=== PATIENT | female | born 1995 | race African-American/Black ===

== ENCOUNTER 2020-07-23 17:02 | Emergency (ER) | payer OTHER ==
[2020-07-23 17:14] VITALS: BMI 41.1
[2020-07-23] MEDS ORDERED: KETOROLAC TROMETHAMINE 30 MG/1 ML VIAL IVPUSH ONE (18:07)
[2020-07-23] MEDS ORDERED: SODIUM CHLORIDE 0.9% 500 ML INFUS.BAG IV ONE (18:07)
[2020-07-23] MEDS ORDERED: KETOROLAC TROMETHAMINE 30 MG/1 ML VIAL ONE (18:13)
[2020-07-23 18:53] LABS: BASO % 0.8 % (0-2.0); EOS % 1.4 % (0-4.5); HEMATOCRIT 38.6 % (32.4-45.2); HEMOGLOBIN 12.8 GM/dL (10.7-15.3); LYMPH % 31.2 % (8-40); MCH 29.2 pg (25.7-33.7); MCHC 33.1 g/dl (32.0-36.0); MEAN PLT VOLUME 9.9 fl (7.5-11.1); MONO % 5.2 % (3.8-10.2); NEUT % 61.4 % (42.8-82.8); PLATELET COUNT 295 K/MM3 (134-434); RBC 4.39 M/mm3 (3.60-5.2); RDW 14.3 % (11.6-15.6); WHITE BLOOD COUNT 6.9 K/mm3 (4.0-10.0)
[2020-07-23 19:25] LABS: POTASSIUM 5.4 mmol/L (3.5-5.1)
[2020-07-23 19:27] LABS: ALBUMIN 3.7 g/dl (3.4-5.0); BLOOD UREA NITROGEN 13.5 mg/dL (7-18); CALCIUM 8.5 mg/dL (8.5-10.1)
[2020-07-23 19:30] LABS: CREATININE 1.2 mg/dL (0.55-1.3)
[2020-07-23 19:32] LABS: BILIRUBIN,TOTAL 0.2 mg/dL (0.2-1); TOT PROT 8.3 g/dl (6.4-8.2)
[2020-07-23 20:20] LABS: EPI CELLS >36 /uL (0-25.1); HYALINE CASTS 5 /uL (0-3.1); URINE APPEARANCE TURBID; URINE BACTERIA 48 /uL (0-1359); URINE BILIRUBIN NEGATIVE (NEGATIVE); URINE COLOR YELLOW; URINE GLUCOSE (UA) NEGATIVE (NEGATIVE); URINE KETONE 1+ (NEGATIVE); URINE LEUK ESTERASE NEGATIVE (NEGATIVE); URINE NITRITE NEGATIVE (NEGATIVE); URINE PROTEIN 1+ (NEGATIVE); URINE WBC 17 /uL (0-25.8)
[2020-07-23 20:21] LABS: HCG,QUALITATIVE URINE Negative
[2020-07-23 21:35] VITALS: BP 116/80; PULSE 73; TEMP 97.8
[2020-07-23 22:31] LABS: URINE RBC 292.9 /uL (0-23.9)
== END 2020-07-23 21:59 | disposition home or self-care (01) ==
LOC: JER 17:02
PROC: 3E0333Z Introduction of Anti-inflammatory into Peripheral Vein, Percutaneous Approach (ICD-10-PCS; principal; 2020-07-23)
DX: R10.9 Unspecified abdominal pain (principal)
CPT/HCPCS: 36415; 74176-TC; 80053; 81003; 84703; 85025; 87086; 99284-25; C9803; U0003

== ENCOUNTER 2020-08-25 05:26 | Day surgery (SDC) | payer OTHER ==
[2020-08-21 18:38] VITALS: BMI 40.4
[2020-08-25] MEDS ORDERED: MIDAZOLAM HCL 2 MG/2 ML SINGLE DOSE VIAL ONE ×4 (07:41→08:05)
[2020-08-25] MEDS ORDERED: ceFAZolin SODIUM 1 GM VIAL IVPB ONE (07:46)
[2020-08-25] MEDS ORDERED: oxyCODONE HCL 5 MG TABLET PO PRN (08:00)
[2020-08-25] MEDS ORDERED: DEXTROSE 5%-0.45% SALINE 1,000 ML IV SCH (08:00)
[2020-08-25 10:14] VITALS: TEMP 97.7
[2020-08-25 12:11] VITALS: BP 123/74; PULSE 93
== END 2020-08-25 11:50 | disposition home or self-care (01) ==
LOC: JASU-SURG 05:26
PROVIDERS: ATTEND Urology
PROC: 0TF4XZZ Fragmentation in Left Kidney Pelvis, External Approach (ICD-10-PCS; principal; 2020-08-25 07:30)
DX: N20.0 Calculus of kidney (principal)
CPT/HCPCS: 81025

== ENCOUNTER 2020-08-27 12:38 | Emergency (ER) | payer OTHER ==
[2020-08-27 12:48] VITALS: BMI 40.4
[2020-08-27] MEDS ORDERED: SODIUM CHLORIDE 1,000 ML IV STA (13:16)
[2020-08-27] MEDS ORDERED: ACETAMINOPHEN 1000 MG/100 ML VIAL (NON FORMULARY) IVPB ONE (13:16)
[2020-08-27] MEDS ORDERED: ONDANSETRON 4 MG/2 ML VIAL IVPUSH ONE (13:16)
[2020-08-27] MEDS ORDERED: ACETAMINOPHEN INJECTION 100 ML IVPB ONE (13:30)
[2020-08-27] MEDS ORDERED: ONDANSETRON 4 MG/2 ML VIAL ONE (13:31)
[2020-08-27 14:00] LABS: BASO % 0.3 % (0-2.0); EOS % 0.8 % (0-4.5); HEMATOCRIT 36.4 % (32.4-45.2); HEMOGLOBIN 12.4 GM/dL (10.7-15.3); LYMPH % 28.1 % (8-40); MCH 29.8 pg (25.7-33.7); MEAN CELL VOLUME 87.7 fl (80-96); MEAN PLT VOLUME 9.8 fl (7.5-11.1); MONO % 6.8 % (3.8-10.2); PLATELET COUNT 258 K/MM3 (134-434); RBC 4.16 M/mm3 (3.60-5.2); RDW 14.4 % (11.6-15.6); WHITE BLOOD COUNT 6.3 K/mm3 (4.0-10.0)
[2020-08-27 14:17] LABS: POTASSIUM 3.8 mmol/L (3.5-5.1)
[2020-08-27 14:20] LABS: ALBUMIN 3.9 g/dl (3.4-5.0); BLOOD UREA NITROGEN 11.4 mg/dL (7-18); CALCIUM 9.1 mg/dL (8.5-10.1)
[2020-08-27 14:24] LABS: CREATININE 1.2 mg/dL (0.55-1.3)
[2020-08-27 14:25] LABS: BILIRUBIN,TOTAL 0.2 mg/dL (0.2-1); TOT PROT 7.9 g/dl (6.4-8.2)
[2020-08-27 15:10] LABS: EPI CELLS 7 /uL (0-25.1); HYALINE CASTS 0 /uL (0-3.1); PH,URINE 5.5 (5.0-8.0); URINE APPEARANCE CLEAR; URINE BACTERIA 146 /uL (0-1359); URINE BILIRUBIN NEGATIVE (NEGATIVE); URINE COLOR YELLOW; URINE GLUCOSE (UA) NEGATIVE (NEGATIVE); URINE KETONE NEGATIVE (NEGATIVE); URINE LEUK ESTERASE NEGATIVE (NEGATIVE); URINE NITRITE NEGATIVE (NEGATIVE); URINE PROTEIN NEGATIVE (NEGATIVE); URINE RBC 15 /uL (0-23.9); URINE UROBILINOGEN 0.2 mg/dL (0.2-1.0); URINE WBC 12 /uL (0-25.8)
[2020-08-27] MEDS ORDERED: KETOROLAC TROMETHAMINE 15 MG/ML VIAL IVPUSH ONE (16:08)
[2020-08-27] MEDS ORDERED: KETOROLAC TROMETHAMINE 30 MG/1 ML VIAL ONE (16:15)
[2020-08-27 18:02] VITALS: BP 121/73; PULSE 61; TEMP 98.6
== END 2020-08-27 18:12 | disposition home or self-care (01) ==
LOC: JER 12:38
PROC: 3E033GC Introduction of Other Therapeutic Substance into Peripheral Vein, Percutaneous Approach (ICD-10-PCS; principal; 2020-08-27)
PROC: 3E0337Z Introduction of Electrolytic and Water Balance Substance into Peripheral Vein, Percutaneous Approach (ICD-10-PCS; principal; 2020-08-27)
DX: N20.0 Calculus of kidney (principal); R11.2 Nausea with vomiting, unspecified
CPT/HCPCS: 36415; 74176-TC; 80053; 81003; 84703; 85025; 87086; 99285-25; C9803; J0131; U0003; U0005

== ENCOUNTER 2020-09-06 17:41 | Emergency (ER) | payer OTHER ==
[2020-09-06 18:19] VITALS: BMI 41.4
[2020-09-06] MEDS ORDERED: SODIUM CHLORIDE 0.9% 500 ML INFUS.BAG IV ONE ×2 (20:41→20:42)
[2020-09-06] MEDS ORDERED: ONDANSETRON 4 MG/2 ML VIAL IVPUSH ONE (20:42)
[2020-09-06] MEDS ORDERED: morphine SULFATE 4 MG/ML VIAL IVPUSH ONE (20:42)
[2020-09-06] MEDS ORDERED: ONDANSETRON 4 MG/2 ML VIAL ONE (20:51)
[2020-09-06] MEDS ORDERED: morphine SULFATE 4 MG/ML VIAL ONE (20:51)
[2020-09-06 21:08] LABS: BASO % 0.3 % (0-2.0); EOS % 0.1 % (0-4.5); HEMATOCRIT 38.5 % (32.4-45.2); HEMOGLOBIN 12.7 GM/dL (10.7-15.3); MCH 29.3 pg (25.7-33.7); MCHC 33.1 g/dl (32.0-36.0); MEAN CELL VOLUME 88.6 fl (80-96); MEAN PLT VOLUME 10.4 fl (7.5-11.1); MONO % 5.8 % (3.8-10.2); NEUT % 79.8 % (42.8-82.8); PLATELET COUNT 274 K/MM3 (134-434); RBC 4.34 M/mm3 (3.60-5.2); RDW 14.1 % (11.6-15.6); WHITE BLOOD COUNT 10.1 K/mm3 (4.0-10.0)
[2020-09-06 21:09] LABS: PH,URINE 5.5 (5.0-8.0); URINE APPEARANCE CLEAR; URINE BILIRUBIN NEGATIVE (NEGATIVE); URINE COLOR YELLOW; URINE GLUCOSE (UA) NEGATIVE (NEGATIVE); URINE KETONE NEGATIVE (NEGATIVE); URINE LEUK ESTERASE NEGATIVE (NEGATIVE); URINE NITRITE NEGATIVE (NEGATIVE); URINE PROTEIN NEGATIVE (NEGATIVE); URINE UROBILINOGEN 0.2 mg/dL (0.2-1.0)
[2020-09-06 21:21] LABS: POTASSIUM 3.9 mmol/L (3.5-5.1)
[2020-09-06 21:23] LABS: CALCIUM 9.6 mg/dL (8.5-10.1)
[2020-09-06 21:24] LABS: ALBUMIN 3.9 g/dl (3.4-5.0); BLOOD UREA NITROGEN 8.9 mg/dL (7-18)
[2020-09-06 21:27] LABS: CREATININE 1.1 mg/dL (0.55-1.3)
[2020-09-06 21:28] LABS: BILIRUBIN,TOTAL 0.4 mg/dL (0.2-1)
[2020-09-06 21:29] LABS: TOT PROT 8.3 g/dl (6.4-8.2)
[2020-09-07] MEDS ORDERED: metroNIDAZOLE 500 MG TABLET PO ONE (00:41)
[2020-09-07] MEDS ORDERED: metroNIDAZOLE 250 MG TABLET ONE (00:55)
[2020-09-07 01:04] VITALS: BP 118/76; PULSE 76; TEMP 98.6
== END 2020-09-07 01:04 | disposition home or self-care (01) ==
LOC: JER 17:41
PROC: 3E033NZ Introduction of Analgesics, Hypnotics, Sedatives into Peripheral Vein, Percutaneous Approach (ICD-10-PCS; principal; 2020-09-06)
PROC: 3E033GC Introduction of Other Therapeutic Substance into Peripheral Vein, Percutaneous Approach (ICD-10-PCS; 2020-09-06)
DX: R10.9 Unspecified abdominal pain (principal)
CPT/HCPCS: 36415; 74176-TC; 80053; 81003; 84703; 85025; 87086; 99284-25

== ENCOUNTER 2021-01-12 04:19 | Day surgery (SDC) | payer OTHER ==
[2021-01-08 17:48] VITALS: BMI 41.9
[2021-01-12] MEDS ORDERED: MIDAZOLAM HCL 2 MG/2 ML SINGLE DOSE VIAL ONE (07:45)
[2021-01-12] MEDS ORDERED: PROPOFOL 20 ML ONE ×3 (07:45→07:58)
[2021-01-12] MEDS ORDERED: oxyCODONE HCL 5 MG TABLET PO PRN (07:56)
[2021-01-12] MEDS ORDERED: ELECTROLYTE-148 SOLN 1,000 ML IV SCH (08:00)
[2021-01-12] MEDS ORDERED: ACETAMINOPHEN 325 MG TABLET (FP) PO PRN (08:43)
[2021-01-12] MEDS ORDERED: ONDANSETRON 4 MG/2 ML VIAL IVPUSH PRN (08:43)
[2021-01-12] MEDS ORDERED: LACTATED RINGERS SOLUTION 1,000 ML IV SCH (08:45)
[2021-01-12 12:18] VITALS: BP 130/60; PULSE 70; TEMP 98
== END 2021-01-12 10:20 | disposition home or self-care (01) ==
LOC: JASU-SURG 04:19
PROVIDERS: ATTEND Urology
PROC: 0TF3XZZ Fragmentation in Right Kidney Pelvis, External Approach (ICD-10-PCS; principal; 2021-01-12 07:30)
DX: N20.0 Calculus of kidney (principal)
CPT/HCPCS: 84703; 94760

== ENCOUNTER 2021-03-10 21:31 | Emergency (ER) | payer OTHER ==
[2021-03-10 21:38] VITALS: TEMP 98; BMI 41.5
[2021-03-11 00:54] LABS: URINE APPEARANCE CLEAR; URINE BILIRUBIN NEGATIVE (NEGATIVE); URINE COLOR YELLOW; URINE GLUCOSE (UA) NEGATIVE (NEGATIVE); URINE KETONE NEGATIVE (NEGATIVE); URINE LEUK ESTERASE NEGATIVE (NEGATIVE); URINE NITRITE NEGATIVE (NEGATIVE); URINE PROTEIN NEGATIVE (NEGATIVE)
[2021-03-11 00:59] LABS: BASO % 0.7 % (0-2.0); EOS % 1.3 % (0-4.5); HEMATOCRIT 35.1 % (32.4-45.2); HEMOGLOBIN 11.9 GM/dL (10.7-15.3); LYMPH % 31.1 % (8-40); MCH 29.1 pg (25.7-33.7); MCHC 33.8 g/dl (32.0-36.0); MEAN PLT VOLUME 9.1 fl (7.5-11.1); MONO % 6.3 % (3.8-10.2); NEUT % 60.6 % (42.8-82.8); PLATELET COUNT 264 10^3/uL (134-434); RBC 4.08 M/mm3 (3.60-5.2); RDW 14.6 % (11.6-15.6); WHITE BLOOD COUNT 6.4 K/mm3 (4.0-10.0)
[2021-03-11 01:21] LABS: ALBUMIN 3.4 g/dl (3.4-5.0); BLOOD UREA NITROGEN 15.8 mg/dL (7-18); CALCIUM 8.5 mg/dL (8.5-10.1)
[2021-03-11 01:26] LABS: BILIRUBIN,TOTAL 0.2 mg/dL (0.2-1); TOT PROT 7.8 g/dl (6.4-8.2)
[2021-03-11 01:34] LABS: HCG,QUALITATIVE URINE Negative
[2021-03-11] MEDS ORDERED: KETOROLAC TROMETHAMINE 30 MG/1 ML VIAL IVPUSH ONE (02:50)
[2021-03-11] MEDS ORDERED: KETOROLAC TROMETHAMINE 30 MG/1 ML VIAL ONE (03:05)
[2021-03-11 03:56] VITALS: BP 128/78; PULSE 66
== END 2021-03-11 03:57 | disposition home or self-care (01) ==
LOC: JER 21:31
PROC: 3E0333Z Introduction of Anti-inflammatory into Peripheral Vein, Percutaneous Approach (ICD-10-PCS; principal; 2021-03-10)
DX: R10.84 Generalized abdominal pain (principal)
CPT/HCPCS: 36415; 74177-TC; 80053; 81003; 84703; 85025; 99285-25

== ENCOUNTER 2023-07-08 15:38 | Emergency (ER) | payer OTHER ==
[2023-07-08 15:44] VITALS: RESP 20; BMI 41.4
[2023-07-08] MEDS ORDERED: SODIUM CHLORIDE 0.9% 500 ML INFUS.BAG IV ONE (16:33)
[2023-07-08] MEDS ORDERED: ONDANSETRON 4 MG/2 ML VIAL IVPUSH ONE (16:34)
[2023-07-08] MEDS ORDERED: ONDANSETRON 4 MG/2 ML VIAL ONE (18:19)
[2023-07-08 18:40] LABS: BASO % 0.4 % (0-2.0); EOS % 1.5 % (0-4.5); HEMATOCRIT 42.6 % (32.4-45.2); HEMOGLOBIN 14.4 GM/dL (10.7-15.3); LYMPH % 22.9 % (8-40); MCH 29.5 pg (25.7-33.7); MCHC 33.8 g/dl (32.0-36.0); MEAN CELL VOLUME 87.2 fl (80-96); MEAN PLT VOLUME 9.4 fl (7.5-11.1); NEUT % 69.2 % (42.8-82.8); PH,URINE 5.5 (5.0-8.0); PLATELET COUNT 250 10^3/uL (134-434); RBC 4.89 M/mm3 (3.60-5.2); RDW 14.9 % (11.6-15.6); URINE APPEARANCE CLEAR; URINE BILIRUBIN NEGATIVE (NEGATIVE); URINE COLOR YELLOW; URINE GLUCOSE (UA) NEGATIVE (NEGATIVE); URINE KETONE 1+ (NEGATIVE); URINE LEUK ESTERASE NEGATIVE (NEGATIVE); URINE NITRITE NEGATIVE (NEGATIVE); URINE PROTEIN NEGATIVE (NEGATIVE); URINE UROBILINOGEN 0.2 mg/dL (0.2-1.0); WHITE BLOOD COUNT 4.1 K/mm3 (4.0-10.0)
[2023-07-08 18:59] LABS: POTASSIUM 4.1 mmol/L (3.5-5.1)
[2023-07-08 19:01] LABS: CALCIUM 9.3 mg/dL (8.5-10.1)
[2023-07-08 19:03] LABS: ALBUMIN 3.9 g/dl (3.4-5.0); BLOOD UREA NITROGEN 12.6 mg/dL (7-18)
[2023-07-08 19:06] LABS: BILIRUBIN,TOTAL 0.4 mg/dL (0.2-1); CREATININE 1.2 mg/dL (0.55-1.3); TOT PROT 8.5 g/dl (6.4-8.2)
[2023-07-08 19:29] VITALS: BP 124/73; PULSE 68; TEMP 99.3
== END 2023-07-08 19:53 | disposition home or self-care (01) ==
LOC: JER 15:38
PROC: 3E033NZ Introduction of Analgesics, Hypnotics, Sedatives into Peripheral Vein, Percutaneous Approach (ICD-10-PCS; principal; 2023-07-08)
DX: R11.0 Nausea (principal); K52.9 Noninfective gastroenteritis and colitis, unspecified; Z20.822 Contact with and (suspected) exposure to COVID-19
CPT/HCPCS: 0241U-QW; 36415; 80053; 81003; 83690; 84703; 85025; 87086; 99284-25

== ENCOUNTER 2023-11-19 16:11 | Emergency (ER) | payer OTHER ==
[2023-11-19 16:36] VITALS: RESP 18; TEMP 97.7; BMI 39.9
[2023-11-19] MEDS ORDERED: ONDANSETRON 4 MG/2 ML VIAL ONE (16:38)
[2023-11-19] MEDS ORDERED: ACETAMINOPHEN INJECTION 100 ML IVPB ONE (16:38)
[2023-11-19] MEDS: ACETAMINOPHEN 1000 MG/100 ML BAG IVPB ONE (16:54)
[2023-11-19] MEDS: ONDANSETRON 4 MG/2 ML VIAL IVPUSH ONE (16:54)
[2023-11-19] MEDS: LACTATED RINGERS SOLUTION 1000 ML INFUS.BAG IV ONE (16:54)
[2023-11-19 17:05] LABS: BASO % 0.2 % (0-2.0); EOS % 0.2 % (0-4.5); HEMATOCRIT 40.4 % (32.4-45.2); HEMOGLOBIN 13.4 GM/dL (10.7-15.3); LYMPH % 11.6 % (8-40); MCH 29.1 pg (25.7-33.7); MCHC 33.1 g/dl (32.0-36.0); MEAN CELL VOLUME 88.1 fl (80-96); MEAN PLT VOLUME 9.2 fl (7.5-11.1); MONO % 3.7 % (3.8-10.2); NEUT % 84.3 % (42.8-82.8); PLATELET COUNT 272 10^3/uL (134-434); RBC 4.58 M/mm3 (3.60-5.2); RDW 15.2 % (11.6-15.6)
[2023-11-19 17:54] LABS: POTASSIUM 3.8 mmol/L (3.5-5.1)
[2023-11-19 17:56] LABS: CALCIUM 9.1 mg/dL (8.5-10.1); MAGNESIUM 1.5 mg/dL (1.8-2.4)
[2023-11-19 17:57] LABS: BLOOD UREA NITROGEN 16.2 mg/dL (7-18)
[2023-11-19 17:58] LABS: EPI CELLS 17 /uL (0-25.1); HYALINE CASTS 0 /uL (0-3.1); PH,URINE 6.5 (5.0-8.0); URINE APPEARANCE CLEAR; URINE BACTERIA 106 /uL (0-1359); URINE BILIRUBIN NEGATIVE (NEGATIVE); URINE COLOR YELLOW; URINE GLUCOSE (UA) NEGATIVE (NEGATIVE); URINE KETONE NEGATIVE (NEGATIVE); URINE LEUK ESTERASE NEGATIVE (NEGATIVE); URINE NITRITE NEGATIVE (NEGATIVE); URINE PROTEIN NEGATIVE (NEGATIVE); URINE RBC 35 /uL (0-23.9); URINE UROBILINOGEN 0.2 mg/dL (0.2-1.0); URINE WBC 13 /uL (0-25.8)
[2023-11-19 17:59] LABS: CREATININE 1.2 mg/dL (0.55-1.3)
[2023-11-19 18:01] LABS: BILIRUBIN,TOTAL 0.4 mg/dL (0.2-1); TOT PROT 7.9 g/dl (6.4-8.2)
[2023-11-19] MEDS ORDERED: MAGNESIUM SULFATE IN WATER 2 GM/50 ML IVPB IVPB ONE (18:23)
[2023-11-19] MEDS: MAGNESIUM SULFATE IN WATER 2 GM/50 ML IVPB IVPB ONE (18:30)
[2023-11-19 19:32] VITALS: BP 130/79; PULSE 75
== END 2023-11-19 19:31 | disposition home or self-care (01) ==
LOC: JER 16:11
PROC: 3E033GC Introduction of Other Therapeutic Substance into Peripheral Vein, Percutaneous Approach (ICD-10-PCS; principal; 2023-11-19)
PROC: 3E033NZ Introduction of Analgesics, Hypnotics, Sedatives into Peripheral Vein, Percutaneous Approach (ICD-10-PCS; 2023-11-19)
PROC: 3E033GC Introduction of Other Therapeutic Substance into Peripheral Vein, Percutaneous Approach (ICD-10-PCS; 2023-11-19)
DX: R11.2 Nausea with vomiting, unspecified (principal); R19.7 Diarrhea, unspecified; R10.31 Right lower quadrant pain; R10.32 Left lower quadrant pain; R10.2 Pelvic and perineal pain; R35.0 Frequency of micturition; R53.1 Weakness; R68.83 Chills (without fever); Z20.822 Contact with and (suspected) exposure to COVID-19
CPT/HCPCS: 0241U-QW; 36415; 80053; 81003; 83690; 83735; 84703; 85025; 87086; 93005; 93010; 99284-25; J0131